=== PATIENT | female | born 1970 | race Caucasian/White ===

== ENCOUNTER → 2017-07-22 | Outpatient (CLI) | payer BC ==
[~2017-07-22] MED LIST: AMIT25TA9 PO; DOXY100C76 PO; EVEN1000 PO; MULT-506 PO; VITAMIN D PO
--- NOTE | 2017-07-23 13:38 | MAMMOGRAPHY REPORT ---
BILATERAL DIGITAL SCREENING MAMMOGRAM TOMOSYNTHESIS WITH CAD: 07/22/2017 CLINICAL HISTORY: Routine screening. TECHNIQUE: Breast tomosynthesis in addition to standard 2D mammography was performed. Current study was also evaluated with a Computer Aided Detection (CAD) system. COMPARISON: Comparison is made to exams dated: 05/09/2016 mammogram, 05/08/2015 mammogram, 05/06/2014 m ammogram, 08/11/2013 mammogram, 05/20/2012 mammogram, and 05/07/2011 mammogram - [facility] enter. BREAST COMPOSITION: The tissue of both breasts is heterogeneously dense, which may obscure small mas ses. FINDINGS: There are scattered benign-appearing punctate microcalcifications in the breasts. The chris st parenchymal pattern is similar to prior mammograms. No suspicious mass, architectural distortion or cluster of new, suspicious microcalcifications is seen. IMPRESSION: ACR BI-RADS CATEGORY 1: NEGATIVE There is no mammographic evidence of malignancy. A 1 year screening mammogram is recommended. The pa tient will receive written notification of the results. Approximately 10% of breast cancers are not detected with mammography. A negative mammographic report should not delay biopsy if a clinically suggestive mass is present. Renae Crum M.D. 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
== END | disposition home or self-care (01) ==
LOC: C.MAMM 16:03
PROVIDERS: ATTEND Surgery
DX: Z12.31 Encounter for screening mammogram for malignant neoplasm of breast (principal)

== ENCOUNTER → 2017-10-29 | Outpatient (CLI) | payer BC ==
--- NOTE | 2017-10-29 19:03 | DIAGNOSTIC IMAGING REPORT ---
L FOOT MIN 3 VIEWS ROUTINE CLINICAL HISTORY: L FOOT INJURY trauma. Pain. COMPARISON: None. DISCUSSION: The bones and joint spaces appear intact. There is no evidence of fracture, dislocation or bony disease. There is no evidence for soft tissue swelling. IMPRESSION: Negative study. The above report was generated using voice recognition software. It may contain grammatical, syntax or spelling errors. Electronically signed by: Blaze Frazier M.D. 10/29/2017 7:02 PM Dictated Date/Time: 10/29/2017 7:00 PM
== END | disposition home or self-care (01) ==
LOC: C.RAD 18:31
PROVIDERS: ATTEND Nurse Practitioner Family
DX: S99.922A Unspecified injury of left foot, initial encounter (principal); X58.XXXA Exposure to other specified factors, initial encounter

== ENCOUNTER 2021-01-13 01:59 | Inpatient (IN) ==
[2021-01-13] MEDS ORDERED: MoRPHine SULFATE 4 MG/ML 1 ML CARP\\VIAL IV STA ×3 (02:21→07:22)
[2021-01-13] MEDS ORDERED: SODIUM CHLORIDE 0.9% 1000ML 500 ML IV ONE ×2 (02:21→05:03)
--- NOTE | 2021-01-13 02:23 | Emergency Department Note ---
History of Present Illness General Chief complaint: Abdominal Pain Stated complaint: ABDOMINAL PAIN Time Seen by Provider: 01/13/21 02:13 History of Present Illness Maximum Pain Intensity: 7 This is a 50-year-old female that presents to the emergency department via ambulance with complaints of "lower abdominal pain, diarrhea". The patient notes a history of gluten intolerance. She states that she was exposed to gluten a few weeks ago but has been doing much better. Then tonight around 12:15 AM she awoke with intense lower abdominal discomfort followed by nausea. She then had diarrhe a and began dry heaving. She denies any recent antibiotic use. She does note that the stool had a very foul odor. Patient denies any history of C. difficile colitis. She denies any history of Crohn's/ulcerative colitis. She does note colonoscopies in the past which have been normal. She rates her overall discomfort at this time as a 7/10. She did receive 4 mg of morphine IV in route as well as 100 mcg of fentanyl. Home Medications Medication Instructions Recorded Confirmed Type acetaminophen [Tylenol Extra 500 mg PO Q6H PRN 03/02/19 03/02/19 History Strength] acetaminophen [Tylenol Extra 500 mg PO QID PRN 03/02/19 03/02/19 History Strength] cannabidiol 0 mg PO QAM 03/02/19 03/02/19 History doxycycline hyclate 50 mg PO BID 03/02/19 03/02/19 History ibuprofen 200 mg PO Q6H PRN 03/02/19 03/02/19 History ketorolac 0 mg IM UD 03/02/19 03/02/19 History ondansetron 4 mg PO Q6H PRN 03/02/19 03/02/19 History polyethylene glycol 3350 17 g PO DAILY 03/02/19 03/02/19 History lidocaine [Lidoderm] 1 patch TOP DAILY #30 ea 03/03/19 Rx promethazine 25 mg PO Q6H PRN #10 tab 03/03/19 Rx Allergies Allergy/AdvReac Type Severity Reaction Status Date / Time gluten Allergy Unknown GI SYMPTOMS Verified 03/02/19 22:40 milk Allergy Unknown GI SYMPTOMS Verified 03/02/19 22:40 No Known Drug Allergies Allergy Unknown . Verified 03/02/19 22:40 minocycline Allergy Hives Verified 03/02/19 22:40 Past Med/Surg History Medical History (Updated 01/13/21 @ 06:51 by Keven Oates PA-C) Chronic back pain Surgical History Hx of hysterectomy Social History Smoking Status: Never smoker Preferred Language: Portuguese Feels Safe at Home: Yes Review of Systems A total of 10 systems reviewed and were otherwise negative Physical Exam Vital Signs Vital Signs - 24 hr 01/13/21 02:07 01/13/21 03:05 01/13/21 05:03 Temperature 36.4 C L Temperature Source Oral Pulse Rate 78 Pulse Rate [Right] 65 68 Pulse Rhythm [Right] Regular Regular Pulse Strength [Right] Normal Normal Respiratory Rate 16 16 16 Respiratory Effort / Characteristics Non-Labored Spontaneous Non-Labored Spontaneous Non-Labored Spontaneous Respiratory Depth Normal Normal Normal Respiratory Pattern Regular Blood Pressure 159/102 H Blood Pressure [Right Arm] 133/72 129/82 Blood Pressure Mean 121 Blood Pressure Mean [Right Arm] 92 97 Blood Pressure Position Lying Blood Pressure Position [Right Arm] Lying Lying Pulse Oximetry 100 98 96 Oxygen Delivery Method Room Air Room Air Room Air Sepsis Recent Fever Within 48 Hours No Sepsis New/Unexplained Change in Mental Status N/A Sepsis Action Taken by Nursing No Action Required 01/13/21 05:53 Temperature Temperature Source Pulse Rate Pulse Rate [Right] 66 Pulse Rhythm [Right] Regular Pulse Strength [Right] Normal Respiratory Rate 16 Respiratory Effort / Characteristics Non-Labored Spontaneous Respiratory Depth Normal Respiratory Pattern Blood Pressure Blood Pressure [Right Arm] 148/86 H Blood Pressure Mean Blood Pressure Mean [Right Arm] 106 Blood Pressure Position Blood Pressure Position [Right Arm] Lying Pulse Oximetry 98 Oxygen Delivery Method Room Air Sepsis Recent Fever Within 48 Hours Sepsis New/Unexplained Change in Mental Status Sepsis Action Taken by Nursing VITAL SIGNS - Vital signs and nursing notes were reviewed. Stable and afebrile. GENERAL -50-year-old female appearing her stated age who is in no acute distress. Communicates well with provider and answers questions appropriately. SKIN - Without rashes. No meningeal or petechial rash. HEAD - NC/AT. EYES - PERRL with EOMI bilaterally. Sclera anicteric. EARS - No deformities of external structures noted on gross examination b ilaterally. NOSE - Midline and without cyanosis. No epistaxis or purulent drainage noted. MOUTH/OROPHARYNX - Without perioral cyanosis. NECK - Neck with FROM. No nuchal rigidity. LUNGS - Chest wall symmetric without accessory muscle use, intercostals retractions, or central cyanosis. Normal vesicular breath sounds CTA B/L. No wheezes, rales, or rhonchi appreciated. CARDIAC - RRR with S1/S2. No murmur, rubs, or gallops appreciated. ABDOMEN - Abdominal contour normal without pulsations or visible masses. BS normoactive all four quadrants. Abdomen is soft and nonrigid. There is lower abdominal tenderness to palpation. No palpable masses, hepatosplenomegaly, or ascites noted. EXTREMITIES - No clubbing or peripheral cyanosis. +5/5 strength noted in UE/LE bilaterally. NEUROLOGIC - Cranial nerves II through XII grossly intact. Sensory intact to light touch throughout. PSYCH - A&O, and cooperates fully with examiner. Pt is very pleasant and interacts well with examiner. Course Administered Medications Discontinued Medications Sodium Chloride (Nss 1000ml) 500 mls @ 999 mls/hr IV .Q31M ONE Stop: 01/13/21 02:51 Last Infusion: 01/13/21 02:57 Dose: 0 mls/hr Documented by: [id number] Admin: 01/13/21 02:26 Dose: 999 mls/hr Documented by: [id number] Sodium Chloride (Nss 1000ml) 500 mls @ 999 mls/hr IV .Q31M ONE Stop: 01/13/21 05:33 Last Infusion: 01/13/21 05:39 Dose: 0 mls/hr Documented by: [id number] Admin: 01/13/21 05:05 Dose: 999 mls/hr Documented by: [id number] Ioversol (Ioversol 100ml) 94 ml IV ONCE ONE Stop: 01/13/21 03:22 Last Admin: 01/13/21 03:21 Dose: 94 ml Documented by: [id number] Morphine Sulfate (Morphine Sulfate 4 Mg/Ml 1 Ml Carp\\Vial) 4 mg IV NOW STA Stop: 01/13/21 02:22 Last Admin: 01/13/21 02:26 Dose: 4 mg Documented by: [id number] Morphine Sulfate (Morphine Sulfate 4 Mg/Ml 1 Ml Carp\\Vial) 4 mg IV NOW STA Stop: 01/13/21 04:12 Last Admin: 01/13/21 04:14 Dose: 4 mg Documented by: [id number] Medical Decision Making Laboratory Data Result diagrams: 01/13/21 02:00 01/13/21 02:00 Lab Results 01/13/21 01/13/21 01/13/21 Range/Units 02:00 02:00 03:00 WBC 7.43 (4.8-10.8) K/uL RBC 4.68 (4.2-5.4) M/uL Hgb 14.9 (12.0-16.0) g/dL Hct 41.5 (37-47) % MCV 88.7 (80-100) fL MCH 31.8 (25-34) pg MCHC 35.9 (32-36) g/dL RDW Std Deviation 39.4 (36.4-46.3) fL RDW Coeff of Aster 12.3 (11.5-14.5) % Plt Count 358 (130-400) K/uL MPV 9.2 (7.4-10.4) fL Immature Gran % (Auto) 0.1 % Neut % (Auto) 48.8 % Lymph % (Auto) 43.6 % Crisp % (Auto) 5.9 % Eos % (Auto) 1.3 % Baso % (Auto) 0.3 % Neut # (Auto) 3.62 (1.4-6.5) K/uL Lymph # (Auto) 3.24 (1.2-3.4) K/uL Crisp # (Auto) 0.44 (0.11-0.59) K/uL Eos # (Auto) 0.10 (0-0.5) K/uL Baso # (Auto) 0.02 (0-0.2) K/uL Immature Gran # (Auto) 0.01 (0.00-0.02) K/uL Sodium 140 (136-145) mmol/L Potassium 3.0 L (3.5-5.1) mmol/L Chloride 106 (98-107) mmol/L Carbon Dioxide 25 (21-32) mmol/L Anion Gap 9.0 (3-11) BUN 26 H (7-18) mg/dl Creatinine 0.95 (0.6-1.2) mg/dl Est Cr Clr Drug Dosing 66.8 ml/min Est GFR ( Amer) 80.9 Est GFR (Non-Af Amer) 69.8 BUN/Creatinine Ratio 27.0 H (10-20) Glucose 120 H (70-99) mg/dl Lactate (0.4-2.0) mmol/L Calcium 9.3 (8.5-10.1) mg/dl Magnesium 2.0 (1.8-2.4) mg/dl Total Bilirubin 0.3 (0.2-1) mg/dl AST 17 (15-37) U/L ALT 25 (12-78) U/L Alkaline Phosphatase 86 (45-117) U/L Total Protein 7.7 (6.4-8.2) gm/dl Albumin 4.1 (3.4-5.0) gm/dl Globulin 3.6 (2.5-4.0) gm/dl Albumin/Globulin Ratio 1.1 (0.9-2) Lipase 121 (73-393) U/L Urine Color Urine Appearance (Clear) Urine pH (4.5-7.5) Ur Specific [place] (1.000-1.030) Urine Protein (Negative) Urine Glucose (UA) (Negative) Urine Ketones (Negative) Urine Blood (Negative) Urine Nitrite (Negative) Urine Bilirubin (Negative) Urine Urobilinogen (Negative) Ur Leukocyte Esterase (Negative) Stl C. diff Tox B Gene Positive Cdiff Gene H (Neg) Stl C.difficile Tox A&B Negative Cdiff Toxin (Negative) COVID-19 Eval Order SARS-CoV-2 (PCR) (Negative) Influenza Type A (PCR) (Neg) Influenza Type B (PCR) (Neg) RSV (RT-PCR) (Neg) 01/13/21 01/13/21 01/13/21 Range/Units 03:00 04:50 05:51 WBC (4.8-10.8) K/uL RBC (4.2-5.4) M/uL Hgb (12.0-16.0) g/dL Hct (37-47) % MCV (80-100) fL MCH (25-34) pg MCHC (32-36) g/dL RDW Std Deviation (36.4-46.3) fL RDW Coeff of Aster (11.5-14.5) % Plt Count (130-400) K/uL MPV (7.4-10.4) fL Immature Gran % (Auto) % Neut % (Auto) % Lymph % (Auto) % Crisp % (Auto) % Eos % (Auto) % Baso % (Auto) % Neut # (Auto) (1.4-6.5) K/uL Lymph # (Auto) (1.2-3.4) K/uL Crisp # (Auto) (0.11-0.59) K/uL Eos # (Auto) (0-0.5) K/uL Baso # (Auto) (0-0.2) K/uL Immature Gran # (Auto) (0.00-0.02) K/uL Sodium (136-145) mmol/L Potassium (3.5-5.1) mmol/L Chloride (98-107) mmol/L Carbon Dioxide (21-32) mmol/L Anion Gap (3-11) BUN (7-18) mg/dl Creatinine (0.6-1.2) mg/dl Est Cr Clr Drug Dosing ml/min Est GFR ( Amer) Est GFR (Non-Af Amer) BUN/Creatinine Ratio (10-20) Glucose (70-99) mg/dl Lactate 1.6 (0.4-2.0) mmol/L Calcium (8.5-10.1) mg/dl Magnesium (1.8-2.4) mg/dl Total Bilirubin (0.2-1) mg/dl AST (15-37) U/L ALT (12-78) U/L Alkaline Phosphatase (45-117) U/L Total Protein (6.4-8.2) gm/dl Albumin (3.4-5.0) gm/dl Globulin (2.5-4.0) gm/dl Albumin/Globulin Ratio (0.9-2) Lipase (73-393) U/L Urine Color Yellow Urine Appearance Clear (Clear) Urine pH 7.0 (4.5-7.5) Ur Specific [place] 1.023 (1.000-1.030) Urine Protein Negative (Negative) Urine Glucose (UA) Negative (Negative) Urine Ketones Trace H (Negative) Urine Blood Negative (Negative) Urine Nitrite Negative (Negative) Urine Bilirubin Negative (Negative) Urine Urobilinogen Negative (Negative) Ur Leukocyte Esterase Negative (Negative) Stl C. diff Tox B Gene (Neg) Stl C.difficile Tox A&B (Negative) COVID-19 Eval Order [facility]FluRsv at [facility] SARS-CoV-2 (PCR) (Negative) Influenza Type A (PCR) (Neg) Influenza Type B (PCR) (Neg) RSV (RT-PCR) (Neg) 01/13/21 Range/Units 05:51 WBC (4.8-10.8) K/uL RBC (4.2-5.4) M/uL Hgb (12.0-16.0) g/dL Hct (37-47) % MCV (80-100) fL MCH (25-34) pg MCHC (32-36) g/dL RDW Std Deviation (36.4-46.3) fL RDW Coeff of Aster (11.5-14.5) % Plt Count (130-400) K/uL MPV (7.4-10.4) fL Immature Gran % (Auto) % Neut % (Auto) % Lymph % (Auto) % Crisp % (Auto) % Eos % (Auto) % Baso % (Auto) % Neut # (Auto) (1.4-6.5) K/uL Lymph # (Auto) (1.2-3.4) K/uL Crisp # (Auto) (0.11-0.59) K/uL Eos # (Auto) (0-0.5) K/uL Baso # (Auto) (0-0.2) K/uL Immature Gran # (Auto) (0.00-0.02) K/uL Sodium (136-145) mmol/L Potassium (3.5-5.1) mmol/L Chloride (98-107) mmol/L Carbon Dioxide (21-32) mmol/L Anion Gap (3-11) BUN (7-18) mg/dl Creatinine (0.6-1.2) mg/dl Est Cr Clr Drug Dosing ml/min Est GFR ( Amer) Est GFR (Non-Af Amer) BUN/Creatinine Ratio (10-20) Glucose (70-99) mg/dl Lactate (0.4-2.0) mmol/L Calcium (8.5-10.1) mg/dl Magnesium (1.8-2.4) mg/dl Total Bilirubin (0.2-1) mg/dl AST (15-37) U/L ALT (12-78) U/L Alkaline Phosphatase (45-117) U/L Total Protein (6.4-8.2) gm/dl Albumin (3.4-5.0) gm/dl Globulin (2.5-4.0) gm/dl Albumin/Globulin Ratio (0.9-2) Lipase (73-393) U/L Urine Color Urine Appearance (Clear) Urine pH (4.5-7.5) Ur Specific [place] (1.000-1.030) Urine Protein (Negative) Urine Glucose (UA) (Negative) Urine Ketones (Negative) Urine Blood (Negative) Urine Nitrite (Negative) Urine Bilirubin (Negative) Urine Urobilinogen (Negative) Ur Leukocyte Esterase (Negative) Stl C. diff Tox B Gene (Neg) Stl C.difficile Tox A&B (Negative) COVID-19 Eval Order SARS-CoV-2 (PCR) NEGATIVE (Negative) Influenza Type A (PCR) Negative (Neg) Influenza Type B (PCR) Negative (Neg) RSV (RT-PCR) Negative (Neg) Imaging Data Radiologist's Impression: CT ABDOMEN & PELVIS With Contrast: Comparison made with prior study of March 03, 2019. Liver spleen pancreas and gallbladder appear normal Stomach and the small bowel appear normal. The appendix is not visualized. There is some mild thickening in the rectal wall is some haziness in the surrounding fat possibly related to distal sigmoid colitis or proctitis. There is fluid in the distal sigmoid colon The adrenals kidneys ureters and bladder appear normal. Uterus is not visualized. There are mild atherosclerotic changes in the abdominal aorta. There is no free peritoneal air or fluid.. Impression: Nonspecific colitis and proctitis Radiologist: Chu Us MD Study ready at 03:31 and initial results transmitted at 04:18 MDM Narrative Patient was seen and evaluated as above in room C2. Review was performed of nursing notes and vital signs. I did review pertinent previous visits and patient history. After obtaining a thorough history and physical examination the above work up was performed. Patient presents to us today with lower abdominal pain and diarrhea. She also has nausea. She did have episodes of dry heaving but no vomiting. Patient does have tenderness in the lower abdomen on exam. Abdomen is soft and nonrigid. She did receive fentanyl IV in route as well as IV Zofran. Options of care were discussed with patient and family at bedside. IV access established. Labs were drawn. She was given additional analgesics here as well as IV fluids. Laboratory studies ago no leukocytosis or anemia. There is hypokalemia. There is also dehydration with BUN at 26. Glucose 120. No evidence of kidney or liver failure. Urinalysis does not suggest infection. Patient was negative for the C. difficile toxin B gene however the confirmatory/additional test is negative for the C. difficile toxin suggesting likely a carrier. Patient was reevaluated several times and continued with abdominal discomfort. Lactic acid within normal limits. Given the continued need for IV analgesics it is felt that further evaluation and management inpatient setting is warranted. Patient also prefers inpatient management. I believe this is reasonable. Case discussed with the hospitalist. Please refer to further documentation regarding her stay. Case was discussed with the attending physician. GCS: 15 In the evaluation and treatment of this patient the following differential diagnoses were entertained: Acute abdomen, bowel obstruction, cholecystitis, pancreatitis, appendicitis, colitis, ischemic colitis, UTI, pyelonephritis, among others. Impression & Plan Colitis, Proctitis, Dehydration, Hypokalemia Discharge Plan Visit Data Chief Complaint: Abdominal Pain Stated Complaint: ABDOMINAL PAIN ED Provider: Justice Garsia ED Midlevel Provider: Keven Oates Discharge Problem: Colitis, Proctitis, Dehydration, Hypokalemia Patient Disposition: Admitted As Inpatient Condition: Good Forms Stand Alone Forms: My [facility] Prescriptions Prescriptions: No Action ketorolac 15 mg/mL Solution 0 mg IM UD RF: 0 doxycycline hyclate 50 mg capsule 50 mg PO BID RF: 0 acetaminophen [Tylenol Extra Strength] 500 mg Tablet 500 mg PO Q6H PRN (Reason: Pain) RF: 0 acetaminophen [Tylenol Extra Strength] 500 mg Tablet 500 mg PO QID PRN (Reason: Pain) RF: 0 ibuprofen 200 mg Tablet 200 mg PO Q6H PRN (Reason: Pain) RF: 0 polyethylene glycol 3350 17 gram/dose powder 17 g PO DAILY RF: 0 ondansetron 4 mg Tablet,Disintegrating 4 mg PO Q6H PRN (Reason: Nausea) RF: 0 cannabidiol 100 mg/mL Solution 0 mg PO QAM RF: 0 lidocaine [Lidoderm] 5 % adhesive patch,medicated 1 patch TOP DAILY Qty: 30 RF: 0 promethazine 25 mg tablet 25 mg PO Q6H PRN (Reason: nausea and vomiting) Qty: 10 RF: 0 Referrals Referrals: Susan Valdez CRNP [Primary Care Provider] -
[2021-01-13 02:58] LABS: Albumin Level 4.1 gm/dl (3.4-5.0); Basophils # (auto) 0.02 K/uL (0-0.2); Basophils % (auto) 0.3 %; Calcium 9.3 mg/dl (8.5-10.1); Creatinine Clr Calc Pharmacy 66.8 ml/min; Eosinophils % (auto) 1.3 %; Est GFR (African American) 80.9; Est GFR (Non-African American) 69.8; Hematocrit (blood only) 41.5 % (37-47); Hemoglobin 14.9 g/dL (12.0-16.0); Immature Granulocytes # (auto) 0.01 K/uL (0.00-0.02); Immature Granulocytes % (auto) 0.1 %; Lymphocytes # (auto) 3.24 K/uL (1.2-3.4); Lymphocytes % (auto) 43.6 %; Mean Corpuscular Hemoglobin 31.8 pg (25-34); Mean Corpuscular Hgb Conc 35.9 g/dL (32-36); Mean Corpuscular Volume 88.7 fL (80-100); Mean Platelet Volume 9.2 fL (7.4-10.4); Monocytes # (auto) 0.44 K/uL (0.11-0.59); Monocytes % (auto) 5.9 %; Neutrophils # (auto) 3.62 K/uL (1.4-6.5); Neutrophils % (auto) 48.8 %; Platelet Count 358 K/uL (130-400); RDW Coefficient of Variation 12.3 % (11.5-14.5); RDW Standard Deviation 39.4 fL (36.4-46.3); Red Blood Count 4.68 M/uL (4.2-5.4); White Blood Count 7.43 K/uL (4.8-10.8)
[2021-01-13 03:01] LABS: Albumin Globulin Ratio 1.1 (0.9-2); Bilirubin,Total 0.3 mg/dl (0.2-1); Globulin 3.6 gm/dl (2.5-4.0); Total Protein 7.7 gm/dl (6.4-8.2)
[2021-01-13 03:12] LABS: Appearance Urine Clear (Clear); Bilirubin Urine Negative (Negative); Blood Urine Negative (Negative); Color Urine Yellow; Glucose Urine UA Negative (Negative); Ketones Urine Trace (Negative); Leukocyte Esterase Urine Negative (Negative); Nitrite Urine Negative (Negative); Protein Urine Negative (Negative); Specific Gravity Urine 1.023 (1.000-1.030); Urobilinogen Urine Negative (Negative)
[2021-01-13] MEDS ORDERED: OPTIRAY 320 100ml IV ONE (03:21)
[2021-01-13 04:49] LABS: Cdiff Antigen Positive
[2021-01-13 04:50] LABS: Cdiff Toxin A+B Negative Cdiff Toxin (Negative)
[2021-01-13 06:39] LABS: Influenza A virus by PCR Negative (Neg); Influenza B virus by PCR Negative (Neg); RSV by PCR Negative (Neg); SARS CoV2 RNA(COVID-19) InHosp NEGATIVE (Negative)
--- NOTE | 2021-01-13 06:48 | History & Physical Report ---
Date of Service January 13, 2021 Assessment & Plan (1) Colitis: Colitis/proctitis- Unclear etiology at this time. NPO Patient is C. difficile gene positive, but C. difficile toxin negative. History of gluten sensitive enteropathy with last wheat intake approximately 2 weeks ago. COVID-19 testing is negative. Empiric treatment vancomycin 250 mg p.o. 4 times daily NSS + KCl 20 mEq at high 50 mils per hour Zofran 4 mg IV every 6 hours as needed Acetaminophen 650 mg p.o. every 6 hours as needed mild pain or fever Morphine sulfate 4 mg IV every 3 hours as needed severe pain Consult gastroenterology Dr. Lex Aquino Present on Admission?: Yes (2) Proctitis: See above Present on Admission?: Yes (3) Dehydration: Dehydration/hypokalemia- NSS + KCl 20 mEq at 150 mils per hour Repeat laboratories every morning Present on Admission?: Yes (4) Hypokalemia: Potassium level 3.0 upon admission. Patient does note some dysesthesias upper and lower extremities, which are likely associated, and should be followed to resolution with correction of p otassium Present on Admission?: Yes History of Present Illness Chief Complaint: The patient presents to the emergency department with severe abdominal pain and loose stools over the past 24 to 36 hours. Primary Care Provider: JACQUE Ozuna The patient is a 50-year-old female with a past medical history including gluten sensitive enteropathy and IBS, who presents to the emergency department with 24 to 36 hours of progressively worsening abdominal pain and loose stools. She did also recently develop some dry heaves as well. She denies any recent travels or sick exposures. She has not had any history of symptoms to this degree in the past. She denies any questionable recent food intakes, but does report having had something with we did about 2 weeks ago. Allergies Allergy/AdvReac Type Severity Reaction Status Date / Time gluten Allergy Unknown GI SYMPTOMS Verified 03/02/19 22:40 milk Allergy Unknown GI SYMPTOMS Verified 03/02/19 22:40 No Known Drug Allergies Allergy Unknown . Verified 03/02/19 22:40 minocycline Allergy Hives Verified 03/02/19 22:40 Home Medications Medication Instructions Recorded Confirmed Type acetaminophen [Tylenol Extra 500 mg PO Q6H PRN 03/02/19 03/02/19 History Strength] acetaminophen [Tylenol Extra 500 mg PO QID PRN 03/02/19 03/02/19 History Strength] cannabidiol 0 mg PO QAM 03/02/19 03/02/19 History doxycycline hyclate 50 mg PO BID 03/02/19 03/02/19 History ibuprofen 200 mg PO Q6H PRN 03/02/19 03/02/19 History ketorolac 0 mg IM UD 03/02/19 03/02/19 History ondansetron 4 mg PO Q6H PRN 03/02/19 03/02/19 History polyethylene glycol 3350 17 g PO DAILY 03/02/19 03/02/19 History lidocaine [Lidoderm] 1 patch TOP DAILY #30 ea 03/03/19 Rx promethazine 25 mg PO Q6H PRN #10 tab 03/03/19 Rx Past Med/Surg History Medical History (Updated 01/13/21 @ 06:45 by Armando Bangura MD) Chronic back pain Social History Smoking Status: Never smoker Preferred Language: Iraqi Feels Safe at Home: Yes Review of Systems Review of Systems: The patient denies chest pain, palpitations, shortness of breath, dyspnea on exertion, cough, lower extremity swelling, sore throat, fevers, chills, sweats, blood in urine or stool, dysuria, urinary frequency or urgency, lightheadedness, dizziness, headache, memory loss, loss of consciousness, rash, abnormal bruising or bleeding, imbalance, focal or generalized weakness, numbness or tingling in arms or legs, back or neck pain, or night sweats. The review of systems is otherwise negative other than for that already noted above, and at least 10 systems have been reviewed. Physical Exam Physical Exam: The patient is awake, alert and oriented 3, well developed and well nourished, normocephalic and atraumatic, lying in bed and in no acute distress. HEENT--PERRL, EOMI, mucous membranes and oropharynx dry. Neck--supple. No JVD. No bruits. Thyroid normal, trachea midline, no adenopathy. Heart--normal S1 and S2. No murmurs, rubs or gallops. Lungs--clear bilaterally, no respiratory distress, no accessory muscle use. Abdomen--normal bowel sounds and soft. Generalized mild tenderness. Nondistended Extremities--no cyanosis or clubbing. No edema. Dermatologic--normal skin turgor, normal color, no abnormal lymph nodes, no rash. Neurologic--cranial nerves II through XII grossly intact. Rheumatologic--normal range of motion. Psychiatric--normal affect. Results & Data Results & Data ([facility]) Vital Signs (Past 12 Hours) Vital Signs Temp Pulse Pulse Resp BP BP Pulse Ox 01/13/21 05:53 66 16 148/86 H 98 01/13/21 05:03 68 16 129/82 96 01/13/21 03:05 65 16 133/72 98 01/13/21 02:07 97.5 F L 78 16 159/102 H 100 Laboratory Results Laboratory Results WBC 7.43 K/uL (4.8-10.8) 01/13/21 02:00 RBC 4.68 M/uL (4.2-5.4) 01/13/21 02:00 Hgb 14.9 g/dL (12.0-16.0) 01/13/21 02:00 Hct 41.5 % (37-47) 01/13/21 02:00 MCV 88.7 fL (80-100) 01/13/21 02:00 MCH 31.8 pg (25-34) 01/13/21 02:00 MCHC 35.9 g/dL (32-36) 01/13/21 02:00 RDW Std Deviation 39.4 fL (36.4-46.3) 01/13/21 02:00 RDW Coeff of Aster 12.3 % (11.5-14.5) 01/13/21 02:00 Plt Count 358 K/uL (130-400) 01/13/21 02:00 MPV 9.2 fL (7.4-10.4) 01/13/21 02:00 Immature Gran % (Auto) 0.1 % 01/13/21 02:00 Neut % (Auto) 48.8 % 01/13/21 02:00 Lymph % (Auto) 43.6 % 01/13/21 02:00 [place] % (Auto) 5.9 % 01/13/21 02:00 Eos % (Auto) 1.3 % 01/13/21 02:00 Baso % (Auto) 0.3 % 01/13/21 02:00 Neut # (Auto) 3.62 K/uL (1.4-6.5) 01/13/21 02:00 Lymph # (Auto) 3.24 K/uL (1.2-3.4) 01/13/21 02:00 [place] # (Auto) 0.44 K/uL (0.11-0.59) 01/13/21 02:00 Eos # (Auto) 0.10 K/uL (0-0.5) 01/13/21 02:00 Baso # (Auto) 0.02 K/uL (0-0.2) 01/13/21 02:00 Immature Gran # (Auto) 0.01 K/uL (0.00-0.02) 01/13/21 02:00 Sodium 140 mmol/L (136-145) 01/13/21 02:00 Potassium 3.0 mmol/L (3.5-5.1) L 01/13/21 02:00 Chloride 106 mmol/L (98-107) 01/13/21 02:00 Carbon Dioxide 25 mmol/L (21-32) 01/13/21 02:00 Anion Gap 9.0 (3-11) 01/13/21 02:00 BUN 26 mg/dl (7-18) H 01/13/21 02:00 Creatinine 0.95 mg/dl (0.6-1.2) 01/13/21 02:00 Est Cr Clr Drug Dosing 66.8 ml/min 01/13/21 02:00 Est GFR ( Amer) 80.9 01/13/21 02:00 Est GFR (Non-Af Amer) 69.8 01/13/21 02:00 BUN/Creatinine Ratio 27.0 (10-20) H 01/13/21 02:00 Glucose 120 mg/dl (70-99) H 01/13/21 02:00 Lactate 1.6 mmol/L (0.4-2.0) 01/13/21 04:50 Calcium 9.3 mg/dl (8.5-10.1) 01/13/21 02:00 Magnesium 2.0 mg/dl (1.8-2.4) 01/13/21 02:00 Total Bilirubin 0.3 mg/dl (0.2-1) 01/13/21 02:00 AST 17 U/L (15-37) 01/13/21 02:00 ALT 25 U/L (12-78) 01/13/21 02:00 Alkaline Phosphatase 86 U/L (45-117) 01/13/21 02:00 Total Protein 7.7 gm/dl (6.4-8.2) 01/13/21 02:00 Albumin 4.1 gm/dl (3.4-5.0) 01/13/21 02:00 Globulin 3.6 gm/dl (2.5-4.0) 01/13/21 02:00 Albumin/Globulin Ratio 1.1 (0.9-2) 01/13/21 02:00 Lipase 121 U/L (73-393) 01/13/21 02:00 Urine Color Yellow 01/13/21 03:00 Urine Appearance Clear (Clear) 01/13/21 03:00 Urine pH 7.0 (4.5-7.5) 01/13/21 03:00 Ur Specific [place] 1.023 (1.000-1.030) 01/13/21 03:00 Urine Protein Negative (Negative) 01/13/21 03:00 Urine Glucose (UA) Negative (Negative) 01/13/21 03:00 Urine Ketones Trace (Negative) H 01/13/21 03:00 Urine Blood Negative (Negative) 01/13/21 03:00 Urine Nitrite Negative (Negative) 01/13/21 03:00 Urine Bilirubin Negative (Negative) 01/13/21 03:00 Urine Urobilinogen Negative (Negative) 01/13/21 03:00 Ur Leukocyte Esterase Negative (Negative) 01/13/21 03:00 Stl C. diff Tox B Gene Positive Cdiff Gene (Neg) H 01/13/21 03:00 Stl C.difficile Tox A&B Negative Cdiff Toxin (Negative) 01/13/21 03:00 COVID-19 Eval Order CovFluRsv at [facility] 01/13/21 05:51 SARS-CoV-2 (PCR) NEGATIVE (Negative) 01/13/21 05:51 Influenza Type A (PCR) Negative (Neg) 01/13/21 05:51 Influenza Type B (PCR) Negative (Neg) 01/13/21 05:51 RSV (RT-PCR) Negative (Neg) 01/13/21 05:51 Diagnostic Findings [facility] Patient: [place] GARCIA (Female) : 70 Status: ER Date: 01/13/21 03:20 Room #: History: LOW ABD PAIN, DIARRHEA, appendix present, 94 ml optiray Slices: [id number] Priors: Tech: Sammy Salazar @ [id number] Exams: CT ABDOMEN & PELVIS With Contrast Contrast: IV Amt: 94 ml optiray Accession Numbers: [id number] Preliminary Findings Only See Final Report For Complete Findings CT ABDOMEN & PELVIS With Contrast: Comparison made with prior study of March 03, 2019. Liver spleen pancreas and gallbladder appear normal Stomach and the small bowel appear normal. The appendix is not visualized. There is some mild thickening in the rectal wall is some haziness in the surrounding fat possibly related to distal sigmoid colitis or proctitis. There is fluid in the distal sigmoid colon The adrenals kidneys ureters and bladder appear normal. Uterus is not visualized. There are mild atherosclerotic changes in the abdominal aorta. There is no free peritoneal air or fluid.. Impression: Nonspecific colitis and proctitis Radiologist: Chu Us MD Study ready at 03:31 and initial results transmitted at 04:18 *This report constitutes a preliminary interpretation only. Non-acute findings felt to be unrelated to the clinical presentation may not be discussed in this report. The study will be interpreted and a final report will be generated by the local Radiologist the following shift. To reach the hospital radiology department call [phone]. If a discrepancy is found between the preliminary and final interpretations of this study, please notify us via our Client Portal at [email or web address] under QA Exams.You can also fax this report with a description of the discrepancy, or include the final report, to our daytime fax number [phone].If faxing, please indicate the severity of discrepancy using one of the following categories: [ ] 1 - Agree/Informational [ ] 2 - Unlikely to Affect Management [ ] 3 - Possible Eventual Change of Management [ ] 4 - Probable Immediate Change of Management For all other patient related information, please fax us at [phone]. [id number] Code Status & VTE Plan Code Status Full code VTE Prophylaxis Plan VTE Prophylaxis will be ordered: Yes PG Care Time/CCT Total # of Minutes Spent Total Time Spent with Patient: Total time spent is greater than 50% in coordination of care (as documented) at patient's floor/unit and/or counseling patient: Coding Level of Care Code 17674 Initial Inpt Care Lvl 2 Diagnoses Colitis K52.9 Proctitis K62.89 Dehydration E86.0 Hypokalemia E87.6
--- NOTE | 2021-01-13 08:51 | CT Scan Report ---
CT abd pelvis IV con only CLINICAL HISTORY: lower abd pain, diarrhea COMPARISON STUDY: 03/03/2019 TECHNIQUE: The patient was scanned in a dynamic helical fashion during intravenous administration of 94 cc of Optiray 320 A dose lowering technique was utilized adhering to the principles of ALARA. CT DOSE: 467.32 mGy.cm FINDINGS: Lower chest: There are mild bibasilar atelectatic changes Liver: The contrast-enhanced liver is normal in size, contour, and attenuation. There is no intrahepa tic biliary ductal dilatation. The hepatic veins and portal veins are patent. Gallbladder: Unremarkable. Spleen: Normal in size and attenuation. Pancreas: Unremarkable. Adrenal glands: Unremarkable. Kidneys: There is symmetric renal cortical enhancement. The kidneys are normal in size without hydron ephrosis. Bowel: There are no transition zones to indicate bowel obstruction. There is no evidence of acute div erticulitis. The appendix is not visualized with certainty. There are no findings to indicate acute a ppendicitis. There is borderline rectosigmoid wall thickening, nondistended segment versus minimal in flammation. Peritoneum: There is no intraperitoneal free air or abdominal ascites. Vasculature: The abdominal aorta is normal in course and caliber. Adenopathy: None. Pelvic viscera: The uterus is surgically absent. Skeletal structures: No destructive osseous lesions are seen. IMPRESSION: 1. No evidence of bowel obstruction. No evidence of free air 2. Borderline rectosigmoid wall thickening. Nondistended segment versus minimal inflammatory change. ACT 112: Negative or not required by law. Electronically signed by: Gonzalez Dale M.D. 01/13/2021 8:50 AM
[2021-01-13] MEDS: FAMOTIDINE 20 MG in SYRINGE 3 ML IV SCH ×2 (09:16→20:45)
[2021-01-13] MEDS: POTASSIUM CHLORIDE / WTR 10 MEQ/100 ML PLCT IV SCH ×2 (10:51→12:35)
[2021-01-13] MEDS: NSS + 20MEQ KCL 20 MEQ/1,000 ML BAG IV SCH ×2 (10:51→20:37)
[2021-01-13] MEDS: VANCOMYCIN HCL 250 MG/5 ML SOLN PO SCH ×3 (10:52→23:46)
[2021-01-13] MEDS: RASPBERRY SYRUP 5 ML UDP PO SCH ×3 (10:52→23:45)
[2021-01-13] MEDS: POTASSIUM CHLORIDE CRTAB 20 MEQ TABCR PO SCH ×3 (11:43→20:37)
--- NOTE | 2021-01-13 11:50 | Consultation Report ---
DATE OF CONSULTATION: 01/13/2021 REASON FOR EVALUATION: Diarrhea and "colitis." HISTORY OF PRESENT ILLNESS: The patient is a 50-year-old who has longstanding history of celiac disease. The patient has been feeling well until about midnight last night when she awoke with severe crampy abdominal pain, particularly in the lower abdomen. Rated as a 7/10. This was associated with some dry heaves and about 4 episodes of yellowy brown diarrhea. She said the diarrhea was particularly foul smelling and not typical of what her usual bowel movements smell like. She got dehydrated and ambulance was summoned and brought her to the Emergency Room. She was found to have an elevated BUN and a low potassium, but her white count was normal. Hemoglobin and hematocrit were normal. She is on no blood in her stool, no blood in the vomitus. She is urinating okay. Stool was tested for C. diff and returned positive for the organism, but negative for the toxin. She was started on vancomycin 250 mg 4 times a day. Stool for routine bacterial pathogens was ordered as well. She is getting rehydrated and her potassium is being repleted and she has only had 1 small bowel movement since being hospitalized. PAST MEDICAL HISTORY: Remarkable for severe endometriosis. She has had several laparoscopies for that. She also had an abdominal hysterectomy. She has celiac disease and some arthritis, chronic back pain. MEDICATIONS AT HOME: Tylenol, cannabidiol, doxycycline, ibuprofen, ondansetron, polyethylene glycol, Lidoderm and promethazine. ALLERGIES: GLUTEN, MILK, MINOCYCLINE. SOCIAL HISTORY: The patient is , lives with her . 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 PHYSICAL EXAMINATION: GENERAL: The patient appears acutely ill. VITAL SIGNS: Blood pressure is 148/86, pulse 66, respirations 16, pulse ox on room air is 98, temperature is normal. BACK: Showed no CVA tenderness. ABDOMEN: Shows low midline scar well healed. There was tenderness throughout the abdomen, but more so on the low midline and left lower quadrant. No mass or rebound. IMPRESSION: The patient has acute onset of gastrointestinal illness, most likely related to her C. diff despite the toxin being negative. I agree with starting her on vancomycin. We will give her a 10-day course. She is aware that there is a 25% risk of relapse due to spores terminating at the end of the treatment course. We will also check her stool for bacterial pathogens and I also ordered a stool for fecal leukocytes. She will use morphine for pain, Zofran for nausea and she is getting IV saline for rehydration. I will continue to follow the patient during her hospital stay. [place]
[2021-01-13] MEDS: MoRPHine SULFATE 4 MG/ML 1 ML CARP\\VIAL IV PRN (12:08)
[2021-01-13] MEDS: ACETAMINOPHEN 325 MG TAB PO PRN (19:40)
--- NOTE | 2021-01-13 20:14 | Hospitalist Progress Note ---
Date of Service January 13, 2021 Assessment & Plan (1) Colitis: suspected to be from c diff (gene is +, toxin negative, but clinical picture does suggest active c diff infection). appreciate [facility] GI consultation. vancomycin x 10 days, day #1 today. clear liquids. IV fluids. IV pain meds. if she fails to improve over the next few days other causes of her colitis/lower GI issues would need additional investigation. (2) Proctitis: See above (3) Dehydration: cont IV fluids clear liquids as tolerated bmp am (4) Hypokalemia: replete IV/PO repeat labs am (5) Celiac disease: GF-diet Admission and Anticipated Discharge Date Admission Date: January 13, 2021 Subjective patient has not had diarrhea since the ER but continues with lower abd discomfort takes chronic doxycycline for rosacea sees [facility] - Dr Teixeira she is ok with stopping doxycycline Physical Exam Constitutional: well developed and well nourished; no acute distress and no altered mental status ENMT: Mouth: + dry oral mucous membranes Respiratory: normal respiratory effort, lungs clear to auscultation Cardiovascular: Rate/Rhythm: regular rate and regular rhythm Heart Sounds: normal S1 and normal S2; no murmur Vessels: posterior tibial pulses present and dorsalis pedis pulses present; no JVD Extremities: no edema Gastrointestinal (Abdomen): Inspection/Auscultation: normal bowel sounds; abdomen not distended Percussion/Palpation: + abdomen tender (lower quadrants - mild ); no guarding and no hepatosplenomegaly Skin: no rashes, warm and dry Psychiatric: A+Ox3, euthymic affect Results & Data Results & Data ([facility]) Vital Signs (Past 12 Hours) Vital Signs Temp Pulse Resp BP Pulse Ox 01/13/21 19:34 36.5 C 57 L 14 129/80 97 Laboratory Results Laboratory Results - last 24 hr 01/13/21 01/13/21 01/13/21 02:00 02:00 03:00 WBC 7.43 RBC 4.68 Hgb 14.9 Hct 41.5 MCV 88.7 MCH 31.8 MCHC 35.9 RDW Std Deviation 39.4 RDW Coeff of Aster 12.3 Plt Count 358 MPV 9.2 Immature Gran % (Auto) 0.1 Neut % (Auto) 48.8 Lymph % (Auto) 43.6 [place] % (Auto) 5.9 Eos % (Auto) 1.3 Baso % (Auto) 0.3 Neut # (Auto) 3.62 Lymph # (Auto) 3.24 [place] # (Auto) 0.44 Eos # (Auto) 0.10 Baso # (Auto) 0.02 Immature Gran # (Auto) 0.01 Sodium 140 Potassium 3.0 L Chloride 106 Carbon Dioxide 25 Anion Gap 9.0 BUN 26 H Creatinine 0.95 Est Cr Clr Drug Dosing 66.8 Est GFR ( Amer) 80.9 Est GFR (Non-Af Amer) 69.8 BUN/Creatinine Ratio 27.0 H Glucose 120 H Lactate Calcium 9.3 Magnesium 2.0 Total Bilirubin 0.3 AST 17 ALT 25 Alkaline Phosphatase 86 Total Protein 7.7 Albumin 4.1 Globulin 3.6 Albumin/Globulin Ratio 1.1 Lipase 121 Urine Color Urine Appearance Urine pH Ur Specific [place] Urine Protein Urine Glucose (UA) Urine Ketones Urine Blood Urine Nitrite Urine Bilirubin Urine Urobilinogen Ur Leukocyte Esterase Stl C. diff Tox B Gene Positive Cdiff Gene H Stl C.difficile Tox A&B Negative Cdiff Toxin COVID-19 Eval Order SARS-CoV-2 (PCR) Influenza Type A (PCR) Influenza Type B (PCR) RSV (RT-PCR) 01/13/21 01/13/21 01/13/21 03:00 04:50 05:51 WBC RBC Hgb Hct MCV MCH MCHC RDW Std Deviation RDW Coeff of Aster Plt Count MPV Immature Gran % (Auto) Neut % (Auto) Lymph % (Auto) [place] % (Auto) Eos % (Auto) Baso % (Auto) Neut # (Auto) Lymph # (Auto) [place] # (Auto) Eos # (Auto) Baso # (Auto) Immature Gran # (Auto) Sodium Potassium Chloride Carbon Dioxide Anion Gap BUN Creatinine Est Cr Clr Drug Dosing Est GFR ( Amer) Est GFR (Non-Af Amer) BUN/Creatinine Ratio Glucose Lactate 1.6 Calcium Magnesium Total Bilirubin AST ALT Alkaline Phosphatase Total Protein Albumin Globulin Albumin/Globulin Ratio Lipase Urine Color Yellow Urine Appearance Clear Urine pH 7.0 Ur Specific [place] 1.023 Urine Protein Negative Urine Glucose (UA) Negative Urine Ketones Trace H Urine Blood Negative Urine Nitrite Negative Urine Bilirubin Negative Urine Urobilinogen Negative Ur Leukocyte Esterase Negative Stl C. diff Tox B Gene Stl C.difficile Tox A&B COVID-19 Eval Order CovFluRsv at [facility] SARS-CoV-2 (PCR) Influenza Type A (PCR) Influenza Type B (PCR) RSV (RT-PCR) 01/13/21 05:51 WBC RBC Hgb Hct MCV MCH MCHC RDW Std Deviation RDW Coeff of Aster Plt Count MPV Immature Gran % (Auto) Neut % (Auto) Lymph % (Auto) [place] % (Auto) Eos % (Auto) Baso % (Auto) Neut # (Auto) Lymph # (Auto) [place] # (Auto) Eos # (Auto) Baso # (Auto) Immature Gran # (Auto) Sodium Potassium Chloride Carbon Dioxide Anion Gap BUN Creatinine Est Cr Clr Drug Dosing Est GFR ( Amer) Est GFR (Non-Af Amer) BUN/Creatinine Ratio Glucose Lactate Calcium Magnesium Total Bilirubin AST ALT Alkaline Phosphatase Total Protein Albumin Globulin Albumin/Globulin Ratio Lipase Urine Color Urine Appearance Urine pH Ur Specific [place] Urine Protein Urine Glucose (UA) Urine Ketones Urine Blood Urine Nitrite Urine Bilirubin Urine Urobilinogen Ur Leukocyte Esterase Stl C. diff Tox B Gene Stl C.difficile Tox A&B COVID-19 Eval Order SARS-CoV-2 (PCR) NEGATIVE Influenza Type A (PCR) Negative Influenza Type B (PCR) Negative RSV (RT-PCR) Negative PG Care Time/CCT Total # of Minutes Spent Total Time Spent with Patient: Total time spent is greater than 50% in coordination of care (as documented) at patient's floor/unit and/or counseling patient: Coding Level of Care Code None Diagnoses Colitis K52.9 Proctitis K62.89 Dehydration E86.0 Hypokalemia E87.6 Celiac disease K90.0
[2021-01-13] MEDS ORDERED: SUMAtriptan succinate 50 MG TAB PO STA (21:09)
[2021-01-13] MEDS ORDERED: SUMAtriptan succinate 100 MG TAB PO STA (21:17)
[2021-01-13] MEDS: ONDANSETRON INJ 2 MG/ML 2 ML VIAL IV PRN (21:35)
[2021-01-14] MEDS: RASPBERRY SYRUP 5 ML UDP PO SCH ×4 (05:40→23:48)
[2021-01-14] MEDS: VANCOMYCIN HCL 250 MG/5 ML SOLN PO SCH ×3 (05:40→17:07)
[2021-01-14] MEDS: ACETAMINOPHEN 325 MG TAB PO PRN (05:45)
[2021-01-14] MEDS: NSS + 20MEQ KCL 20 MEQ/1,000 ML BAG IV SCH ×2 (06:19→16:08)
[2021-01-14 06:38] LABS: BUN Creatinine Ratio 11.6 (10-20); Calcium 8.4 mg/dl (8.5-10.1); Creatinine Clr Calc Pharmacy 105.8 ml/min; Est GFR (African American) 123.2; Est GFR (Non-African American) 106.3; Potassium 4.6 mmol/L (3.5-5.1)
[2021-01-14] MEDS: POTASSIUM CHLORIDE CRTAB 20 MEQ TABCR PO SCH (08:15)
[2021-01-14] MEDS: FAMOTIDINE 20 MG in SYRINGE 3 ML IV SCH (08:15)
[2021-01-14] MEDS: MoRPHine SULFATE 4 MG/ML 1 ML CARP\\VIAL IV PRN (14:16)
--- NOTE | 2021-01-14 14:55 | Progress Notes ---
DATE: 01/14/2021 SUBJECTIVE: The patient has had no bowel movements since arriving on the floor of the hospital, her diet was advanced to full liquids, which she has tolerated well for breakfast. She did get some Tylenol for headache yesterday and some Zofran for nausea during the night. Abdominal pain persists, but is diminished somewhat. LABORATORY: Shows potassium is now from 3 up to 4.6, BUN went from 26-7 with hydration, preliminary stool culture is negative for bacterial pathogens. The C. diff was positive, toxin negative, but she is responding to oral vancomycin. Fecal leukocytes have not been collected yet. IMPRESSION: The patient has acute gastroenteritis, probably from C. diff, which is responding to vancomycin and supportive measures. We will advance her to a low fiber gluten-free diet today.
[2021-01-14] MEDS: HYDROCODONE/ACETAMOPHEN 5/325MG TAB PO PRN (20:20)
[2021-01-14] MEDS: FAMOTIDINE 20 MG TAB PO SCH (20:20)
[2021-01-14] MEDS: ONDANSETRON INJ 2 MG/ML 2 ML VIAL IV PRN (20:21)
--- NOTE | 2021-01-14 22:00 | Hospitalist Progress Note ---
Date of Service January 14, 2021 Assessment & Plan (1) Colitis: improving. suspected to be from c diff (gene is +, toxin negative, but clinical picture may suggest active c diff infection). appreciate [facility] GI consultation. vancomycin x 10 days, day #2 today. tolerating low fiber diet -- stop IV fluids. her clinical course has been quite atypical for c diff -- could she have another cause of her colitis/proctitis as seen on admission CT?? will she ultimately need endoscopy to r/o other causes? defer to GI. will need to check cost of vanco in am. (2) Proctitis: See above (3) Dehydration: resolved stop IV fluids tonight (4) Hypokalemia: repleted and resolved (5) Celiac disease: GF-diet Admission and Anticipated Discharge Date Admission Date: January 13, 2021 Subjective patient overall feeling better was advanced to low fiber/celiac diet today by GI - tolerating this w/o nausea or emesis still w/ abd pain - LLQ diarrhea resolved had a small stool earlier today - was formed Review of Systems Constitutional: no fever Respiratory: no dyspnea Cardiovascular: no chest pain Physical Exam Constitutional: well developed and well nourished; no acute distress and no altered mental status ENMT: external ear and nose normal, oropharynx normal Respiratory: normal respiratory effort, lungs clear to auscultation Cardiovascular: Rate/Rhythm: regular rate and regular rhythm Heart Sounds: normal S1 and normal S2; no murmur Vessels: posterior tibial pulses present and dorsalis pedis pulses present; no JVD Extremities: no edema Gastrointestinal (Abdomen): Inspection/Auscultation: normal bowel sounds; abdomen not distended Percussion/Palpation: + abdomen tender (LLQ); no guarding and no hepatosplenomegaly Skin: no rashes, warm and dry Psychiatric: A+Ox3, euthymic affect Results & Data Results & Data ([facility]) Vital Signs (Past 12 Hours) Vital Signs Temp Pulse Pulse Resp BP Pulse Ox 01/14/21 21:54 36.7 C 87 16 133/71 96 01/14/21 15:27 36.3 C L 57 L 16 110/67 96 Laboratory Results Laboratory Results - last 24 hr 01/14/21 05:37 Sodium 142 Potassium 4.6 D Chloride 113 H Carbon Dioxide 27 Anion Gap 2.0 L BUN 7 D Creatinine 0.60 D Est Cr Clr Drug Dosing 105.8 Est GFR ( Amer) 123.2 Est GFR (Non-Af Amer) 106.3 BUN/Creatinine Ratio 11.6 Glucose 95 Calcium 8.4 L PG Care Time/CCT Total # of Minutes Spent Total Time Spent with Patient: Total time spent is greater than 50% in coordination of care (as documented) at patient's floor/unit and/or counseling patient: Coding Level of Care Code 86118 Subseq Hosp Care Lvl 2 Diagnoses Colitis K52.9 Proctitis K62.89 Dehydration E86.0 Hypokalemia E87.6 Celiac disease K90.0
[2021-01-14] MEDS: HYDROCORTISONE HC 2.5% CRM 30GM TUBE EXT SCH (23:47)
[2021-01-14] MEDS: VANCOMYCIN HCL 125 MG/2.5ML SOLN PO SCH (23:48)
[2021-01-14] MEDS: CALCIUM CARBONATE 500 MG CHEWABLE TAB PO PRN (23:48)
[2021-01-15] MEDS: HYDROCORTISONE HC 2.5% CRM 30GM TUBE EXT SCH ×5 (04:29→23:31)
[2021-01-15] MEDS: VANCOMYCIN HCL 125 MG/2.5ML SOLN PO SCH ×4 (06:39→23:31)
[2021-01-15] MEDS: RASPBERRY SYRUP 5 ML UDP PO SCH ×4 (06:39→23:31)
[2021-01-15] MEDS: CALCIUM CARBONATE 500 MG CHEWABLE TAB PO PRN (06:43)
[2021-01-15] MEDS: FAMOTIDINE 20 MG TAB PO SCH ×2 (08:24→20:31)
--- NOTE | 2021-01-15 08:55 | Gastroenterology Progress Note ---
Date of Service January 15, 2021 Assessment & Plan (1) Colitis: (2) Clostridioides difficile infection: The patient was admitted with acute gastroenteritis most likely from C. difficile. She is responding well to vancomycin and supportive measures. She is tolerating low fiber gluten free diet. She continues to exhibit some nausea and abdominal pain but symptoms are improving. We will continue to monitor. Please refer to supervising physician addendum for further recommendations. Admission and Anticipated Discharge Date Admission Date: January 13, 2021 Subjective The patient awakens easily with verbal stimuli. Reports she is feeling somewhat better this morning. She does have continued complaints of nausea. She also has complaints of generalized abdominal discomfort which is worse in the left lower quadrant. She reports she has not had a bowel movement overnight as yet this morning. Denies vomiting. She reports that she tolerated advanced p.o. diet yesterday. She does report some reflux/heartburn symptoms which she has used Tums with some improvement in symptoms. She also used Zofran which was helpful for nausea. Review of Systems Review of Systems: All systems reviewed & are unremarkable except as noted in Subjective Physical Exam Constitutional: well developed and well nourished; no acute distress and no altered mental status ENMT: Ears: no hearing impairment Nose: no external nose abnormality Mouth: no lip abnormality Neck: normal visual inspection Respiratory: normal respiratory effort; no respiratory distress and no labored breathing Cardiovascular: Rate/Rhythm: regular rate and regular rhythm Gastrointestinal (Abdomen): Inspection/Auscultation: normal bowel sounds; abdomen not distended Percussion/Palpation: + abdomen tender (Generalized worsened the LLQ); no guarding and no hepatosplenomegaly Musculoskeletal: Extremities: extremities normal to inspection Skin: no rashes, warm and dry Psychiatric: Orientation: alert and oriented x 3 Results & Data ([facility]) Vital Signs (Past 12 Hours) Vital Signs Temp Pulse Resp BP Pulse Ox 01/15/21 07:01 36.7 C 57 L 16 109/67 97 01/14/21 22:36 36.7 C 70 16 105/63 98 Laboratory Results - last 48 hr 01/14/21 05:37 Sodium 142 Potassium 4.6 D Chloride 113 H Carbon Dioxide 27 Anion Gap 2.0 L BUN 7 D Creatinine 0.60 D Est Cr Clr Drug Dosing 105.8 Est GFR ( Amer) 123.2 Est GFR (Non-Af Amer) 106.3 BUN/Creatinine Ratio 11.6 Glucose 95 Calcium 8.4 L
[2021-01-15] MEDS: ACETAMINOPHEN 325 MG TAB PO PRN (11:13)
--- NOTE | 2021-01-15 13:53 | Progress Notes ---
DATE: 01/15/2021 Addendum to the progress note done today by Stefanie Blount: I examined the patient today and she is lime vat tender in her lower abdomen. She had a bad night with some nausea and a lot of abdominal rumbling and gurgling. She had a little bit of stool, which was sent for fecal leukocytes. Today is day 3 of vancomycin. She is on a low-fiber gluten-free diet, which she is tolerating moderately well. I am hoping that with a little bit more supportive care, she should be able to go home tomorrow and I plan to do a colonoscopy as an outpatient in a couple weeks to follow up on her abnormal CAT scan findings to make sure there is nothing else going on in her colon other than C. diff.
[2021-01-15] MEDS: ONDANSETRON INJ 2 MG/ML 2 ML VIAL IV PRN (15:08)
[2021-01-15] MEDS: HYDROCODONE/ACETAMOPHEN 5/325MG TAB PO PRN (15:08)
--- NOTE | 2021-01-15 18:24 | Hospitalist Progress Note ---
Date of Service January 15, 2021 Assessment & Plan (1) Colitis: Significantly improved by this afternoon, passing a lot of flatus Still having some loose stools but have decreased suspected to be from c diff (gene is +, toxin negative, but clinical picture may suggest active c diff infection). appreciate [facility] GI consultation. Continue vancomycin x 10 days, last day of therapy will be 01/22 tolerating low fiber diet-have since discontinued IV fluids -Continue hydrocodone as needed Continue Pepcid 20 mg p.o. twice daily Continue morphine as needed Continue Tylenol and Zofran as needed her clinical course has been quite atypical for c diff -- could she have another cause of her colitis/proctitis as seen on admission CT?? GI plans on performing colonoscopy in a couple of weeks (2) Proctitis: See above (3) Dehydration: resolved with IV fluids (4) Hypokalemia: repleted and resolved (5) Celiac disease: GF-diet (6) DVT prophylaxis: SCDs, ambulation Disposition-continues to medical/surgical floor but can likely discharged home tomorrow if continuing to do well Admission and Anticipated Discharge Date Admission Date: January 13, 2021 Subjective Patient reports she had a bad night last night with a lot of bloating and gas and it was difficult to sleep. She continued to have abdominal pain that was mostly in the lower abdomen but some in the upper abdomen. She is finally feeling better later this afternoon after passing a lot of flatus. She is having some small bowel movements that are nonbloody and continue to be very foul-smelling and yellowish in color and soft. No further nausea, no vomiting. She did eat regular food for dinner. Denies any chest pains or shortness of breath, no lightheadedness or headache. Review of Systems Review of Systems: All systems reviewed & are unremarkable except as noted in HPI & below No dysuria or urinary frequency Physical Exam Constitutional: WD/WN, vitals as above Eyes: + anicteric sclerae Neck: trachea midline, no thyromegaly Respiratory: normal respiratory effort, lungs clear to auscultation Cardiovascular: RRR, no murmur, no edema Chest (Breasts): Chest: normal inspection of chest Gastrointestinal (Abdomen): Inspection/Auscultation: normal bowel sounds; abdomen not distended Percussion/Palpation: + abdomen tender (Mild in the lower abdomen without guarding or rebound) and abdomen soft; no guarding Musculoskeletal: Extremities: extremities normal to inspection; no cyanosis and no clubbing Skin: no rashes, warm and dry Neurologic: moves all extremities and awake; no focal motor deficits Psychiatric: A+Ox3, euthymic affect Lymphatic: no lymphedema Results & Data Results & Data ([facility]) Vital Signs (Past 12 Hours) Vital Signs Temp Pulse Resp BP BP Pulse Ox 01/15/21 15:38 36.5 C 56 L 16 121/72 96 01/15/21 07:01 36.7 C 57 L 16 109/67 97 Laboratory Results Stool culture-preliminary no growth Fecal leukocytes negative PG Care Time/CCT Total # of Minutes Spent Total Time Spent with Patient: Total time spent is greater than 50% in c oordination of care (as documented) at patient's floor/unit and/or counseling patient: Coding Level of Care Code 95778 Subseq Hosp Care Lvl 2 Diagnoses Colitis K52.9 Proctitis K62.89 Dehydration E86.0 Hypokalemia E87.6 Celiac disease K90.0 DVT prophylaxis Z29.9
[2021-01-16] MEDS: ONDANSETRON INJ 2 MG/ML 2 ML VIAL IV PRN (03:56)
[2021-01-16] MEDS: HYDROCODONE/ACETAMOPHEN 5/325MG TAB PO PRN ×2 (03:56→10:56)
[2021-01-16] MEDS: RASPBERRY SYRUP 5 ML UDP PO SCH ×2 (05:51→12:01)
[2021-01-16] MEDS: HYDROCORTISONE HC 2.5% CRM 30GM TUBE EXT SCH ×2 (05:51→12:01)
[2021-01-16] MEDS: VANCOMYCIN HCL 125 MG/2.5ML SOLN PO SCH ×2 (05:51→12:01)
[2021-01-16 06:12] LABS: Basophils # (auto) 0.02 K/uL (0-0.2); Basophils % (auto) 0.4 %; Eosinophils # (auto) 0.11 K/uL (0-0.5); Hemoglobin 14.4 g/dL (12.0-16.0); Lymphocytes # (auto) 1.79 K/uL (1.2-3.4); Lymphocytes % (auto) 32.4 %; Mean Corpuscular Hemoglobin 31.2 pg (25-34); Mean Corpuscular Hgb Conc 35.1 g/dL (32-36); Mean Corpuscular Volume 88.9 fL (80-100); Monocytes # (auto) 0.45 K/uL (0.11-0.59); Monocytes % (auto) 8.1 %; Neutrophils # (auto) 3.16 K/uL (1.4-6.5); Neutrophils % (auto) 57.1 %; Platelet Count 275 K/uL (130-400); RDW Coefficient of Variation 12.2 % (11.5-14.5); RDW Standard Deviation 39.1 fL (36.4-46.3); Red Blood Count 4.61 M/uL (4.2-5.4); White Blood Count 5.53 K/uL (4.8-10.8)
[2021-01-16 06:47] LABS: Albumin Globulin Ratio 0.9 (0.9-2); Albumin Level 3.3 gm/dl (3.4-5.0); BUN Creatinine Ratio 19.6 (10-20); Bilirubin,Total 0.4 mg/dl (0.2-1); Calcium 8.9 mg/dl (8.5-10.1); Creatinine Clr Calc Pharmacy 86.9 ml/min; Est GFR (African American) 111.3; Globulin 3.5 gm/dl (2.5-4.0); Magnesium 2.1 mg/dl (1.8-2.4); Potassium 4.1 mmol/L (3.5-5.1); Total Protein 6.8 gm/dl (6.4-8.2)
--- NOTE | 2021-01-16 08:28 | Gastroenterology Progress Note ---
Date of Service January 16, 2021 Assessment & Plan (1) Colitis: (2) Clostridioides difficile infection: The patient was admitted with acute gastroenteritis most likely from C. difficile. She is responding well to vancomycin and supportive measures. She is tolerating low fiber gluten free diet. Patient is feeling significantly better this morning. She believes she will be able to go home today. Dr. Aquino will be in to round this afternoon. Will need outpatient colonoscopy which she is aware of. Will help coordinate. Please refer to supervising physician addendum for further recommendations. Admission and Anticipated Discharge Date Admission Date: January 13, 2021 Subjective Patient awake alert and oriented. She is sitting upright in bed. She reports she is feeling significantly better this morning. She had a much better night last night. She reports that she did pass a lot of gas throughout the day and evening last night. She did have a small bowel movement yesterday. She reports that she received pain medication and nausea medication around 0 400 this morning she denies any nausea, abdominal pain. She was able to eat a good dinner last night. She believes she may be able to go home today. Review of Systems Review of Systems: All systems reviewed & are unremarkable except as noted in Subjective Physical Exam Constitutional: well developed and well nourished; no acute distress and no altered mental status ENMT: Ears: no hearing impairment Nose: no external nose abnormality Mouth: no lip abnormality Neck: normal visual inspection Respiratory: normal respiratory effort; no respiratory distress and no labored breathing Cardiovascular: Rate/Rhythm: regular rate and regular rhythm Gastrointestinal (Abdomen): Inspection/Auscultation: normal bowel sounds; abdomen not distended Percussion/Palpation: + abdomen tender (Improving); no guarding and no hepatosplenomegaly Musculoskeletal: Extremities: extremities normal to inspection Skin: no rashes, warm and dry Psychiatric: Orientation: alert and oriented x 3 Results & Data ([facility]) Vital Signs (Past 12 Hours) Vital Signs Temp Pulse Pulse Resp BP BP Pulse Ox 01/16/21 08:13 36.8 C 97 H 57 L 20 113/77 97 01/15/21 22:07 36.7 C 55 L 16 108/68 94 Laboratory Results - last 24 hr 01/16/21 01/16/21 05:58 05:58 WBC 5.53 RBC 4.61 Hgb 14.4 Hct 41.0 MCV 88.9 MCH 31.2 MCHC 35.1 RDW Std Deviation 39.1 RDW Coeff of Aster 12.2 Plt Count 275 MPV 9.0 Immature Gran % (Auto) 0.0 Neut % (Auto) 57.1 Lymph % (Auto) 32.4 [place] % (Auto) 8.1 Eos % (Auto) 2.0 Baso % (Auto) 0.4 Neut # (Auto) 3.16 Lymph # (Auto) 1.79 [place] # (Auto) 0.45 Eos # (Auto) 0.11 Baso # (Auto) 0.02 Immature Gran # (Auto) 0.00 Sodium 139 Potassium 4.1 Chloride 107 Carbon Dioxide 28 Anion Gap 4.0 BUN 14 Creatinine 0.73 Est Cr Clr Drug Dosing 86.9 Est GFR ( Amer) 111.3 Est GFR (Non-Af Amer) 96.0 BUN/Creatinine Ratio 19.6 Glucose 94 Calcium 8.9 Magnesium 2.1 Total Bilirubin 0.4 AST 12 L ALT 20 Alkaline Phosphatase 77 Total Protein 6.8 Albumin 3.3 L Globulin 3.5 Albumin/Globulin Ratio 0.9
[2021-01-16] MEDS: FAMOTIDINE 20 MG TAB PO SCH (08:50)
--- NOTE | 2021-01-16 12:35 | Discharge Summary ---
Date of Service January 16, 2021 Admission HPI Per Admitting Provider The patient is a 50-year-old female with a past medical history including gluten sensitive enteropathy and IBS, who presents to the emergency department with 24 to 36 hours of progressively worsening abdominal pain and loose stools. She did also recently develop some dry heaves as well. She denies any recent travels or sick exposures. She has not had any history of symptoms to this degree in the past. She denies any questionable recent food intakes, but does report having had something with we did about 2 weeks ago. Principal Diagnosis C. diff colitis/proctitis Discharge Exam Constitutional WD/WN, vitals as above Eyes + anicteric sclerae Neck trachea midline, no thyromegaly Respiratory normal respiratory effort, lungs clear to auscultation Cardiovascular RRR, no murmur, no edema Chest (Breasts) Chest: normal inspection of chest Gastrointestinal (Abdomen) Inspection/Auscultation: normal bowel sounds; abdomen not distended Percussion/Palpation: + abdomen tender (Mild in the lower abdomen without guarding or rebound) and abdomen soft; no guarding Musculoskeletal Extremities: extremities normal to inspection; no cyanosis and no clubbing Skin no rashes, warm and dry Neurologic moves all extremities and awake; no focal motor deficits Psychiatric A+Ox3, euthymic affect Lymphatic no lymphedema Discharge Data Allergies Allergy/AdvReac Type Severity Reaction Status Date / Time gluten Allergy Unknown GI SYMPTOMS Verified 03/02/19 22:40 milk Allergy Unknown GI SYMPTOMS Verified 03/02/19 22:40 No Known Drug Allergies Allergy Unknown . Verified 03/02/19 22:40 minocycline Allergy Hives Verified 03/02/19 22:40 Consultations 01/13/21 05:28 ED Decision to Admit Stat 01/13/21 08:11 Consult Gastroenterology Routine Ordered Studies 01/13/21 02:21 CT abd pelvis IV con only Urgent Hospital Course (1) Colitis: Significantly improved now, bowels have become more formed and pain is much less Nonbloody stool suspected to be from c diff (gene is +, toxin negative, but clinical picture may suggest active c diff infection). appreciate [facility] GI consultation. Continue vancomycin x 10 days, last day of therapy will be 01/22 tolerating low fiber diet-have since discontinued IV fluids -Continue hydrocodone as needed her clinical course has been quite atypical for c diff -- could she have another cause of her colitis/proctitis as seen on admission CT?? GI plans on performing colonoscopy in a couple of weeks Stable for discharge (2) Proctitis: See above (3) Dehydration: resolved with IV fluids (4) Hypokalemia: repleted and resolved (5) Celiac disease: GF-diet (6) DVT prophylaxis: SCDs, ambulation Disposition-stable for dc to home Total Time Total Time Spent Total Time Spent (In Minutes): 35 min Total Time Includes: Examination of the Patient, Discharge Planning and Medication Reconciliation Discharge Plan Discharge Items Patient Disposition: Home - Self-Care Reason For Visit: COLITIS,PROCTITIS Discharge Diagnosis: Colitis, proctitis, Clostridium difficile infection Condition on Discharge: Good Activity: Resume your previous activity Non-emergency contact: Primary Care Provider and D[employer] Worker Call non-emergency contact if: you have any medication questions, your symptoms worsen, your pain is not controlled, your pain is worsening, your pain is unusual for you, your pain is concerning for you and you have a fever Follow-up/Referrals: Lex Aquino [Physician] - (Dr. Aquino will schedule you for a colonoscopy in 2 weeks.) Susan Valdez CRNP [Primary Care Provider] - (Please follow up within 1-2 weeks.) Diet: Low Fiber Stand-Alone Forms: [employer], Smoking Cessation Medications and DC Order Prescriptions: New hydrocodone-acetaminophen 5-325 mg Tablet 1 tab PO Q4H PRN (Reason: pain) Qty: 10 RF: 0 vancomycin 125 mg capsule 125 mg PO Q6H Qty: 26 RF: 0 Continued ketorolac 15 mg/mL Solution 0 mg IM UD RF: 0 doxycycline hyclate 50 mg capsule 50 mg PO BID RF: 0 acetaminophen [Tylenol Extra Strength] 500 mg Tablet 500 mg PO Q6H PRN (Reason: Pain) RF: 0 acetaminophen [Tylenol Extra Strength] 500 mg Tablet 500 mg PO QID PRN (Reason: Pain) RF: 0 ibuprofen 200 mg Tablet 200 mg PO Q6H PRN (Reason: Pain) RF: 0 polyethylene glycol 3350 17 gram/dose powder 17 g PO DAILY RF: 0 ondansetron 4 mg Tablet,Disintegrating 4 mg PO Q6H PRN (Reason: Nausea) RF: 0 cannabidiol 100 mg/mL Solution 0 mg PO QAM RF: 0 lidocaine [Lidoderm] 5 % adhesive patch,medicated 1 patch TOP DAILY Qty: 30 RF: 0 promethazine 25 mg tablet 25 mg PO Q6H PRN (Reason: nausea and vomiting) Qty: 10 RF: 0 Discharge Orders: Discharge Order (Routine); Ordered 01/16/21 Ordered By: Conchis Caal Admission Data Admit Date/Time: 01/13/21 06:37 Attending Provider: Conchis Caal Admit Provider: Armando Bangura Primary Care Provider: Susan Valdez Other Providers: Armando Bangura ; Lex Aquino Coding Level of Care Code D/C Day Management >30 mins Diagnoses Colitis K52.9 Proctitis K62.89 Dehydration E86.0 Hypokalemia E87.6 Celiac disease K90.0 DVT prophylaxis Z29.9
--- NOTE | 2021-01-16 13:13 | Progress Notes ---
DATE: 01/16/2021 Addendum to the one by Stefanie Blount: The patient reports that she is eating better and has less abdominal pain. She did move her bowels once today. Her fecal leukocyte smear came back showing no white cells seen. Her stool culture for bacterial pathogens is final and it is negative. C. diff is positive and she is on day 4 of vancomycin. IMPRESSION: I recommend completing a 10-day course of vancomycin. She is aware that there is a 25% risk of relapse, would stay on a low-fiber gluten-free diet for 1-2 weeks and we will arrange for an outpatient colonoscopy in 2-4 weeks.
== END 2021-01-16 15:39 | disposition home or self-care (01) | DRG 373 ==
LOC: ED 01:59 → SUATTDRO 06:37 → 3N 06:37